=== PATIENT | female | born 1955 | race Caucasian/White ===

== ENCOUNTER 2020-08-27 09:02 | Inpatient (IN) | payer MEDICARE, OTHER ==
[~2020-08-27] VITALS: Ht 162.6 cm; Wt 68.9 kg
[~2020-08-27 09:02] MED LIST: CIPR500 PO; DICY20 PO; METR500 PO; Norco 7.5-3251 EACH PO
[2020-08-27 09:52] LABS: BASOPHILS ABSOLUTE AUTO 0.11 K/mm3 (0.00-0.23); BASOPHILS PERCENT AUTO 0 % (0-2); EOSINOPHILS ABSOLUTE AUTO 0.03 K/mm3 (0.00-0.68); EOSINOPHILS PERCENT AUTO 0 % (0-6); Hematocrit 50.6 % (33.0-51.0); IMMATURE GRAN ABSOLUTE AUTO 0.14 K/mm3 (0.00-0.10); IMMATURE GRAN PERCENT AUTO 1 % (0-1); LYMPHOCYTES ABSOLUTE AUTO 2.94 K/mm3 (0.84-5.20); LYMPHOCYTES PERCENT AUTO 12 % (21-46); MONOCYTES PERCENT AUTO 7 % (4-13); Mean Corpuscular HGB 30.3 pg (26.0-34.0); Mean Corpuscular HGB Conc 35.6 g/dL (31.5-36.5); Mean Corpuscular Volume 85 fL (80-100); Mean Platelet Volume 10.5 fL (9.1-12.4); NEUTROPHILS ABSOLUTE AUTO 19.87 K/mm3 (1.96-9.15); NEUTROPHILS PERCENT AUTO 81 % (41-73); Platelet Count 335 K/mm3 (150-400); RDW Coefficient Variation 12.9 % (11.7-14.2); RDW Standard Deviation 39.7 fL (35.1-46.3); Red Blood Cell Count 5.94 M/mm3 (3.80-5.20); White Blood Cell Count 24.69 K/mm3 (4.00-11.30)
[2020-08-27 10:04] LABS: Alanine Aminotransfer (ALT/SGP 31 U/L (12-78); Albumin, Blood 3.2 g/dL (3.4-5.0); Albumin/Globulin Ratio 0.9 (0.8-1.8); Alk Phos 100 U/L (50-136); Anion Gap 8 mmol/L (6-16); Aspartate Aminotrans (AST/SGOT 21 U/L (12-37); Bilirubin, Total 0.5 mg/dL (0.1-1.0); Blood Urea Nitrogen 23 mg/dL (8-24); Bun/Creatinine Ratio 24.5 (12.0-20.0); CO2, Blood 27 mmol/L (21-32); Calcium, Blood 8.3 mg/dL (8.5-10.1); Chloride, Blood 99 mmol/L (98-108); Creatinine, Blood 0.94 mg/dL (0.40-1.00); Globulin, Blood 3.4 g/dL (2.2-4.0); Glomerular Filtration Rate >60 (60-); Glucose, Blood 142 mg/dL (70-99); Potassium, Blood 3.2 mmol/L (3.5-5.5); Sodium, Blood 134 mmol/L (136-145); Total Protein, Blood 6.6 g/dL (6.4-8.2)
[2020-08-27] MEDS ORDERED: GABA300 PO (16:14)
[2020-08-27] MEDS ORDERED: [UNRECOGNIZED DRUG - OTHER] TOP (17:00)
[2020-08-27] MEDS ORDERED: CALCIUM 600 +1 EA11 PO (17:01)
[2020-08-27] MEDS ORDERED: Fish Oil 340 mg-1,00 PO (17:02)
[2020-08-27] MEDS ORDERED: MULTIVITAMIN MINERAL PO (17:04)
--- NOTE | 2020-08-27 18:28 | NUR ---
SHIFT SUMMARY. NEW ADMIT TODAY. A&OX4, INDEPENDENT TO BSC SECONDARY TO CONTINUOUS IV FLUIDS. PT REPORTS THAT SHE HAS BEEN HAVING N/V/D FOR THE PAST FOUR MONTHS AND HAS BEEN BEING WORKED UP BY HER PCP. PT REPORTS CRAMPING TYPE PAIN TO ABD THAT IS INTERMITTENT, DENIES NAUSEA, NO VOMITTING SINCE ADMISSION, TOLERATING CLEAR LIQUIDS. CONTINUES WITH LIQUID STOOLS. STOOL SPECIMEN COLLECTED BY PILEDRIVER CARPENTER IS QUESTIONABLE TO BEING CONTAMINATED WITH URINE. CONSULT CALLED IN TO DR. FERRARA VIA HIS CELL. NO OTHER CHANGES OR CONCERNS.
[2020-08-27 21:17] LABS: Adenovirus F 40/41 Not Detected (NOT DETECT); Astrovirus Not Detected (NOT DETECT); Campylobacter Sp Not Detected (NOT DETECT); Cryptosporidium Not Detected (NOT DETECT); Cyclospora Cayetanensis Not Detected (NOT DETECT); E. Coli O157 Not Detected (NOT DETECT); Entamoeba Histolytica Not Detected (NOT DETECT); Enteroaggregative E. coli-EAEC Not Detected (NOT DETECT); Enteropathogenic E. coli-EPEC Not Detected (NOT DETECT); Enterotoxigenic E. coli-ETEC Not Detected (NOT DETECT); Giardia Lamblia Not Detected (NOT DETECT); Norovirus GI/GII Not Detected (NOT DETECT); Plesiomonas Shigelloides Not Detected (NOT DETECT); Rotavirus A Not Detected (NOT DETECT); Salmonella Sp Not Detected (NOT DETECT); Sapovirus Not Detected (NOT DETECT); Shiga Toxin-prod E. coli-STEC Not Detected (NOT DETECT); Shigella/Enteroin E. coli-EIEC Not Detected (NOT DETECT); Vibrio Cholerae Not Detected (NOT DETECT); Vibrio Sp Not Detected (NOT DETECT); Yersinia Enterocolitica Not Detected (NOT DETECT)
[2020-08-27 22:30] LABS: SARS-Cov-2 (COVID-19) PCR, MMC NEGATIVE (NEGATIVE)
[2020-08-28 04:56] LABS: BASOPHILS ABSOLUTE AUTO 0.05 K/mm3 (0.00-0.23); BASOPHILS PERCENT AUTO 0 % (0-2); EOSINOPHILS ABSOLUTE AUTO 0.06 K/mm3 (0.00-0.68); EOSINOPHILS PERCENT AUTO 0 % (0-6); Hemoglobin 14.1 g/dL (11.5-16.0); IMMATURE GRAN ABSOLUTE AUTO 0.08 K/mm3 (0.00-0.10); IMMATURE GRAN PERCENT AUTO 1 % (0-1); LYMPHOCYTES ABSOLUTE AUTO 3.02 K/mm3 (0.84-5.20); LYMPHOCYTES PERCENT AUTO 18 % (21-46); MONOCYTES ABSOLUTE AUTO 1.38 K/mm3 (0.16-1.47); MONOCYTES PERCENT AUTO 8 % (4-13); Mean Corpuscular HGB 30.5 pg (26.0-34.0); Mean Corpuscular HGB Conc 34.4 g/dL (31.5-36.5); Mean Corpuscular Volume 89 fL (80-100); Mean Platelet Volume 10.5 fL (9.1-12.4); NEUTROPHILS ABSOLUTE AUTO 12.52 K/mm3 (1.96-9.15); NEUTROPHILS PERCENT AUTO 73 % (41-73); Platelet Count 228 K/mm3 (150-400); RDW Standard Deviation 41.9 fL (35.1-46.3); Red Blood Cell Count 4.63 M/mm3 (3.80-5.20); White Blood Cell Count 17.11 K/mm3 (4.00-11.30)
[2020-08-28 05:12] LABS: Anion Gap 5 mmol/L (6-16); Blood Urea Nitrogen 13 mg/dL (8-24); Bun/Creatinine Ratio 18.3 (12.0-20.0); CO2, Blood 27 mmol/L (21-32); Calcium, Blood 7.2 mg/dL (8.5-10.1); Chloride, Blood 107 mmol/L (98-108); Creatinine, Blood 0.71 mg/dL (0.40-1.00); Glomerular Filtration Rate >60 (60-); Glucose, Blood 101 mg/dL (70-99); Magnesium, Blood 1.9 mg/dL (1.6-2.4); Sodium, Blood 139 mmol/L (136-145)
--- NOTE | 2020-08-28 07:19 | NUR ---
SHIFT SUMMARY: PATIENT IS A&OX4, UP TO BCS INDEPENDANTLY. GOLYTELY WAS STARTED LAST EVENING, 2000 ML, TOLERATED FAIR. MULTIPLE LIQUID STOOLS WITH SOME UNDIGESTED FOOD. PATIENT WAS UNABLE TO TOLERATE IV POTASSIUM ORDER YESTERDAY AM AT THE ORDERED RATE DUE TO BURNING. MAINTNANCE IVF ALSO HAVE POTASSIUM. PATIENT AGAIN THIS AM REPORTED RIGHT ARM PAIN STARTING AT IV SIGHT IN R ARM. IV SIGHT IS SL WHILE REPORT IS GIVEN TO ONCOMING RN. TOLERATING CL DIET WELL.
--- NOTE | 2020-08-28 12:44 | NUR ---
INTO SDS ADMISSION TO UNIT STARTED
--- NOTE | 2020-08-28 14:19 | NUR ---
08/28/20 1418 Nehemiah Hernandez PATIENT DETERMINED TO BE ASA APPROPRIATE FOR PROPOFOL SEDATION PRIOR TO START OF PROCEDURE BY DR. WARD. 3-LEAD EKG REVIEWED WITH PHYSICIAN PRIOR TO START OF PROCEDURE. Patient to ENDO 1. MONITOR INTACT WITH CONTINUOUS PULSE OXIMETRY AND INTERMITTENT BP.
--- NOTE | 2020-08-28 17:56 | NUR ---
SHIFT SUMMARY. A&OX4, INDEPENDENT IN ROOM, PLEASANT AND COOPERATIVE WITH CARE. UPPER AND LOWER SCOPE COMPLETED TODAY BY DR. ALEM DR. GAVE RESULTS TO PT AND AFTERWARDS. PT STARTED ON IV SOLU-MEDROL THIS AFTERNOON. CONTINUES WITH IV POTTASIUM REPLACEMENT. IV ABX D/C'D. NO OTHER CHANGES OR CONCERNS.
--- NOTE | 2020-08-29 06:31 | NUR ---
SHIFT SUMMARY: PATIENT REPORTED INCREASED ACID REFLUX, TUMS WAS GIVEN WITH LITTLE EFECT, PATIENT REPORTS TAKING 4 TABS OF TUMS AT HOME. SAFETY DEPOSIT SUPERVISOR WAS NOTIFIED AND ORDERS FOR PEPCID IV X1 AND A PRN GI COCKTAIL. PATIENT REPORTS GOOD EFFECT. PATIENT ALSO REPORTS GOOD EFFECT FROM BENADRYL GIVEN FOR SLEEP. UP TO THE BATHROOM INDEPENDANTLY.
--- NOTE | 2020-08-29 16:39 | NUR ---
SHIFT SUMMARY- PT IS A/O, PLESANT AND COOPERATIVE. SHE RECIEVED A REGULAR DIET THIS AFTERNOON AND TOLERATED WELL. SHE REPORTS NO NAUSEA THIS SHIFT BUT DOES HAVE HEARTBURN. PROVIDED TUMS. SHE HAD ONE SMALL BM THIS SHIFT. HER WAS AT BEDSIDE THIS AFTERNOON. SHE AMBULATED IN THE [place] THIS SHIFT AND WAS STABLE ON HER FEET. HER BED IS IN THE LOW POSITION AND CALL LIGHT IS WITIN REACH.
--- NOTE | 2020-08-30 04:37 | NUR ---
SHIFT SUMMARY ADMITTED FOR COLITIS. FULL CODE. WE WERE HOPEFUL FOR DC TODAY. THIS SHIFT THE PT IS STATING THAT HER "HEARTBURN HAS WORSENED". SHE EXPERIENCED N/V ONE TIME THIS SHIFT, SHE REFUSED ZOFRAN. I DID GIVE HER PRN TUMS X2 TIMES, AND THE GI COCKTAIL X1 TIME. SHE HAD AN UPPER & LOWER SCOPE TWO DAYS AGO REVEALING ULCERATIVE COLITIS & A HIATAL HERNIA. DR MCGARRY IS CONSULT.
[2020-08-30] MEDS ORDERED: Acetaminophen325 M1 PO (13:01)
[2020-08-30] MEDS ORDERED: TUMS500 MG PO (13:02)
[2020-08-30] MEDS ORDERED: BENADRYL25 MG PO (13:02)
[2020-08-30] MEDS ORDERED: ASACOL HD800 MG PO (13:04)
[2020-08-30] MEDS ORDERED: MESALAMINE4 GM/60 M2 PR (13:04)
[2020-08-30] MEDS ORDERED: PANT20 PO (13:08)
[2020-08-30] MEDS ORDERED: Prednisone10 MG PO (13:20)
--- NOTE | 2020-08-30 17:52 | NUR ---
SHIFT SUMMARY- PT IS A/O, PLESANT AND COOPERATIVE. HER APPETITIE IS POOR. SHE IS RECIEVING PRN MEICATION FOR HEARTBURN. HER DISCHARGE IS COMPLETE BUT SHE IS STILL RECIEVING HER IV LASIX. SHE TOOK A SHOWER THIS SHIFT. SHE HAD SEVERAL BM THIS SHIFT. HER BED IS IN THE LOW POSITION AND CALL LIGHT IS WITHIN REACH.
--- NOTE | 2020-08-30 19:17 | NUR ---
DISCHARGE NOTE I DC'D THIS PT'S IV. IDENTITY MANAGEMENT DEVELOPER ASSISTED PT TO DRESS AND HELPED HER GATHER HER POSSESSIONS. IDENTITY MANAGEMENT DEVELOPER ASSISTED PT TO PARKING LOT WHERE HER WAS WAITING. DAY SHIFT NURSE EXPLAINED DC INSTRUCTIONS AND PROVIDED DC PAPERWORK
== END 2020-08-30 19:14 | disposition home or self-care (01) | DRG 385 ==
LOC: ER 09:02 → ERHOLD 09:03 → MEDS 09:03
PROVIDERS: Emergency Medicine; Physician Assistant; Student in an Organized Health Care Education/Training Program; ADMIT Internal Medicine
PROC: 0DBP8ZX Excision of Rectum, Via Natural or Artificial Opening Endoscopic, Diagnostic (ICD-10-PCS; 2020-08-28)
PROC: 0DBM8ZX Excision of Descending Colon, Via Natural or Artificial Opening Endoscopic, Diagnostic (ICD-10-PCS; 2020-08-28)
PROC: 0DBH8ZX Excision of Cecum, Via Natural or Artificial Opening Endoscopic, Diagnostic (ICD-10-PCS; 2020-08-28)
PROC: 0DB68ZX Excision of Stomach, Via Natural or Artificial Opening Endoscopic, Diagnostic (ICD-10-PCS; 2020-08-28)
PROC: 0DBN8ZZ Excision of Sigmoid Colon, Via Natural or Artificial Opening Endoscopic (ICD-10-PCS; 2020-08-28)
PROC: 0DBK8ZX Excision of Ascending Colon, Via Natural or Artificial Opening Endoscopic, Diagnostic (ICD-10-PCS; principal; 2020-08-28 13:00)
PROC: 0DBL8ZX Excision of Transverse Colon, Via Natural or Artificial Opening Endoscopic, Diagnostic (ICD-10-PCS; 2020-08-28 13:00)
PROC: 0DBN8ZX Excision of Sigmoid Colon, Via Natural or Artificial Opening Endoscopic, Diagnostic (ICD-10-PCS; 2020-08-28 13:00)
DX: K51.911 Ulcerative colitis, unspecified with rectal bleeding (principal); K29.41 Chronic atrophic gastritis with bleeding; E87.1 Hypo-osmolality and hyponatremia; Z20.822 Contact with and (suspected) exposure to COVID-19; Z66 Do not resuscitate; K21.9 Gastro-esophageal reflux disease without esophagitis; L40.9 Psoriasis, unspecified; E87.6 Hypokalemia; E86.0 Dehydration; K44.9 Diaphragmatic hernia without obstruction or gangrene; G62.9 Polyneuropathy, unspecified; Z87.891 Personal history of nicotine dependence; Z90.49 Acquired absence of other specified parts of digestive tract; Z90.710 Acquired absence of both cervix and uterus; Z90.722 Acquired absence of ovaries, bilateral; Z88.0 Allergy status to penicillin; Z79.2 Long term (current) use of antibiotics; Z79.899 Other long term (current) drug therapy
CPT/HCPCS: 0097U; 36415; 74177; 80048; 80053; 82947; 83690; 83735; 85025; 85651; 86140; 88305; 88342; 93005; 93010; 96365; 96366; 96367; 96375; 96376; 99284-25; A9270; C9113; G0378; J0744; J1956; J2405; J2704; J2930; J3480; J7030; J7050; J7120; Q9967; U0004

== ENCOUNTER 2020-09-03 08:31 | Inpatient (IN) | payer MEDICARE, OTHER ==
[~2020-09-03] VITALS: Ht 162.6 cm; Wt 67.7 kg
[~2020-09-03 08:31] MED LIST changes: +ASACOL HD800 MG PO; +Acetaminophen325 M1 PO; +BENADRYL25 MG PO; +CALCIUM 600 +1 EA11 PO; +Fish Oil 340 mg-1,00 PO; +GABA300 PO; +MESALAMINE4 GM/60 M2 PR; +MULTIVITAMIN MINERAL PO; +PANT20 PO; +Prednisone10 MG PO; +TUMS500 MG PO; +[UNRECOGNIZED DRUG - OTHER] TOP
[2020-09-03 09:06] LABS: BASOPHILS ABSOLUTE AUTO 0.07 K/mm3 (0.00-0.23); BASOPHILS PERCENT AUTO 0 % (0-2); EOSINOPHILS ABSOLUTE AUTO 0.13 K/mm3 (0.00-0.68); EOSINOPHILS PERCENT AUTO 1 % (0-6); Hematocrit 42.2 % (33.0-51.0); Hemoglobin 14.5 g/dL (11.5-16.0); IMMATURE GRAN ABSOLUTE AUTO 0.22 K/mm3 (0.00-0.10); IMMATURE GRAN PERCENT AUTO 1 % (0-1); LYMPHOCYTES ABSOLUTE AUTO 2.25 K/mm3 (0.84-5.20); LYMPHOCYTES PERCENT AUTO 10 % (21-46); MONOCYTES ABSOLUTE AUTO 1.26 K/mm3 (0.16-1.47); MONOCYTES PERCENT AUTO 6 % (4-13); Mean Corpuscular HGB 30.9 pg (26.0-34.0); Mean Corpuscular HGB Conc 34.4 g/dL (31.5-36.5); Mean Corpuscular Volume 90 fL (80-100); Mean Platelet Volume 9.7 fL (9.1-12.4); NEUTROPHILS ABSOLUTE AUTO 17.62 K/mm3 (1.96-9.15); NEUTROPHILS PERCENT AUTO 82 % (41-73); Platelet Count 337 K/mm3 (150-400); RDW Coefficient Variation 13.5 % (11.7-14.2); RDW Standard Deviation 43.6 fL (35.1-46.3); White Blood Cell Count 21.55 K/mm3 (4.00-11.30)
[2020-09-03 09:27] LABS: Alanine Aminotransfer (ALT/SGP 42 U/L (12-78); Albumin, Blood 2.9 g/dL (3.4-5.0); Alk Phos 75 U/L (50-136); Anion Gap 7 mmol/L (6-16); Aspartate Aminotrans (AST/SGOT 15 U/L (12-37); Bilirubin, Total 0.3 mg/dL (0.1-1.0); Blood Urea Nitrogen 17 mg/dL (8-24); Bun/Creatinine Ratio 23.3 (12.0-20.0); CO2, Blood 25 mmol/L (21-32); Calcium, Blood 8.1 mg/dL (8.5-10.1); Chloride, Blood 103 mmol/L (98-108); Creatinine, Blood 0.73 mg/dL (0.40-1.00); Globulin, Blood 2.9 g/dL (2.2-4.0); Glomerular Filtration Rate >60 (60-); Glucose, Blood 136 mg/dL (70-99); Potassium, Blood 3.3 mmol/L (3.5-5.5); Sodium, Blood 135 mmol/L (136-145); Total Protein, Blood 5.8 g/dL (6.4-8.2)
[2020-09-03 12:04] LABS: Source, Urine Clean Catch
[2020-09-03 12:11] LABS: Appearance, Urine Clear (Clear); Bilirubin, Urine Neg (Neg); Blood, Urine Neg (Neg); Color, Urine Yellow (P-Yellow); Glucose Qualitative, Urine Neg (Neg); Ketones, Urine Neg (Neg); Leukocyte Esterase, Urine Neg (Neg); Nitrite, Urine Neg (Neg); Protein, Urine Neg (Neg); Urobilinogen, Urine NORM (Normal)
--- NOTE | 2020-09-03 18:23 | NUR ---
PT SETTLED TO ROOM. SMALL AMT OF REDDISH STOOL IN COMMODE. ADMIT DONE. H/R REG, NO MURMER NOTED NO TELE. LUNGS CLEAR, RESP EASY UNLABORED. ON R.A. BT X4 LAST BM TODAY. DOES HAVE LITE AMT OF REDDISH CONTENTS IN STOOL. HAT HAS BEEN PLACED IN COMMODE TO MONITOR CHANGES. VIODS IND TO BATHROOM. BED IN LOW POSITION, CALL LITE IN REACH, CALLS APPROP
--- NOTE | 2020-09-04 04:46 | NUR ---
SHIFT SUMMARY: STEVEN IS A&OX4. VSS, NO ACUTE EVENTS OVERNIGHT. SHE DID BECOME QUITE AGITATED STATING THAT SHE FELT HER CONDITION WAS WORSENING INSTEAD OF IMPROVING. SHE REPORTED ADEQUATE RELIEF OF THE ABDOMINAL CRAMPING WITH ONE TABLET OF THE NORCO. SHE STATES THAT HER IS VERY UPSET AND WILL LIKELY BE TAKING HER UP TO A HOSPITAL IN [place] THIS MORNING. IV TO LEFT WRIST PATENT, LR INFUSING. SHE IS TOLERATING PO INTAKE WELL. SHE DID HAVE A SOFT BROWN BOWEL MOVEMENT THIS AM. SHE IS LYING IN BED WITH THE CALL LIGHT IN REACH. SHE IS INDEPENDENT TO THE BATHROOM. WILL REPORT TO DAY SHIFT RN.
[2020-09-04 05:13] LABS: BASOPHILS ABSOLUTE AUTO 0.05 K/mm3 (0.00-0.23); BASOPHILS PERCENT AUTO 0 % (0-2); EOSINOPHILS PERCENT AUTO 0 % (0-6); Hematocrit 39.7 % (33.0-51.0); Hemoglobin 13.7 g/dL (11.5-16.0); IMMATURE GRAN ABSOLUTE AUTO 0.16 K/mm3 (0.00-0.10); IMMATURE GRAN PERCENT AUTO 1 % (0-1); LYMPHOCYTES ABSOLUTE AUTO 1.44 K/mm3 (0.84-5.20); LYMPHOCYTES PERCENT AUTO 6 % (21-46); MONOCYTES ABSOLUTE AUTO 0.42 K/mm3 (0.16-1.47); MONOCYTES PERCENT AUTO 2 % (4-13); Mean Corpuscular HGB 30.8 pg (26.0-34.0); Mean Corpuscular HGB Conc 34.5 g/dL (31.5-36.5); Mean Corpuscular Volume 89 fL (80-100); Mean Platelet Volume 9.9 fL (9.1-12.4); NEUTROPHILS ABSOLUTE AUTO 20.99 K/mm3 (1.96-9.15); NEUTROPHILS PERCENT AUTO 91 % (41-73); Platelet Count 291 K/mm3 (150-400); RDW Coefficient Variation 13.6 % (11.7-14.2); RDW Standard Deviation 43.7 fL (35.1-46.3); Red Blood Cell Count 4.45 M/mm3 (3.80-5.20); White Blood Cell Count 23.06 K/mm3 (4.00-11.30)
[2020-09-04 05:40] LABS: Alanine Aminotransfer (ALT/SGP 27 U/L (12-78); Albumin, Blood 2.2 g/dL (3.4-5.0); Albumin/Globulin Ratio 0.9 (0.8-1.8); Alk Phos 59 U/L (50-136); Anion Gap 5 mmol/L (6-16); Aspartate Aminotrans (AST/SGOT 11 U/L (12-37); Bilirubin, Total 0.2 mg/dL (0.1-1.0); Blood Urea Nitrogen 10 mg/dL (8-24); Bun/Creatinine Ratio 17.7 (12.0-20.0); CO2, Blood 27 mmol/L (21-32); Calcium, Blood 7.7 mg/dL (8.5-10.1); Chloride, Blood 106 mmol/L (98-108); Creatinine, Blood 0.57 mg/dL (0.40-1.00); Globulin, Blood 2.5 g/dL (2.2-4.0); Glomerular Filtration Rate >60 (60-); Glucose, Blood 164 mg/dL (70-99); Potassium, Blood 3.4 mmol/L (3.5-5.5); Sodium, Blood 138 mmol/L (136-145); Total Protein, Blood 4.7 g/dL (6.4-8.2)
--- NOTE | 2020-09-04 18:29 | NUR ---
SHIFT SUMMARY CYNTHIA COMPLAINED OF ABDOMINAL CRAMPING FOR WHICH BENTYL HELPED. VISITED. TOLERATED PO DIET WELL WITHOUT NAUSEA. 4 LOOSE MUCOID BROWN BM IN TOILET THIS SHIFT. MIVF RUNNING. CALL LIGHT IN REACH, WCTM
--- NOTE | 2020-09-05 06:20 | NUR ---
SHIFT SUMMARY: PATIENT IS A&OX4, INDEPENDANT IN THE ROOM, STEADY GAIT OBSERVED. NO BM'S REPORTED THIS SHIFT, VOIDING CLEAR YELLOW URINE. PATIENT REPORTED ACID REFLUX AND REQUESTED TUMS. PIANO AND ORGAN REFINISHER JAMES MATA FISHERIES SPECIALIST IS NOTIFIED AND ORDER FOR PRN TUMS WAS OBTAINED AND MEDS WAS GIVEN WITH GOOD EFFECT. PATIENT ALSO REQUESTED SLEEP AIDE, PRN BENADRYL WAS GIVEN WITH GOOD EFFECT.
--- NOTE | 2020-09-05 09:03 | NUR ---
SPOKE WITH DR WARD OFFICE TO SCHEDULE AN OUTPATIENT APPT PER DR GALINDO. PER OFFICE THEY ARE SCHEDULING OUT INTO DEC. THEY REPORT THE PT WAS SEEN IN OFFICE ON 09/01, THEY WILL GET A MESSAGE TO DR WARD AND CALL THE PT BACK WITH AN APPT.
[2020-09-05 09:57] LABS: BASOPHILS ABSOLUTE AUTO 0.07 K/mm3 (0.00-0.23); BASOPHILS PERCENT AUTO 0 % (0-2); EOSINOPHILS ABSOLUTE AUTO 0.01 K/mm3 (0.00-0.68); EOSINOPHILS PERCENT AUTO 0 % (0-6); Hematocrit 37.3 % (33.0-51.0); Hemoglobin 12.7 g/dL (11.5-16.0); IMMATURE GRAN ABSOLUTE AUTO 0.26 K/mm3 (0.00-0.10); IMMATURE GRAN PERCENT AUTO 1 % (0-1); LYMPHOCYTES ABSOLUTE AUTO 1.22 K/mm3 (0.84-5.20); LYMPHOCYTES PERCENT AUTO 5 % (21-46); MONOCYTES PERCENT AUTO 4 % (4-13); Mean Corpuscular HGB 30.7 pg (26.0-34.0); Mean Corpuscular Volume 90 fL (80-100); Mean Platelet Volume 10.2 fL (9.1-12.4); NEUTROPHILS ABSOLUTE AUTO 22.54 K/mm3 (1.96-9.15); NEUTROPHILS PERCENT AUTO 90 % (41-73); Platelet Count 285 K/mm3 (150-400); RDW Standard Deviation 45.9 fL (35.1-46.3); Red Blood Cell Count 4.14 M/mm3 (3.80-5.20)
[2020-09-05 10:10] LABS: Alanine Aminotransfer (ALT/SGP 23 U/L (12-78); Albumin, Blood 2.3 g/dL (3.4-5.0); Albumin/Globulin Ratio 0.8 (0.8-1.8); Alk Phos 57 U/L (50-136); Anion Gap 4 mmol/L (6-16); Aspartate Aminotrans (AST/SGOT 10 U/L (12-37); Bilirubin, Total 0.2 mg/dL (0.1-1.0); Blood Urea Nitrogen 8 mg/dL (8-24); Bun/Creatinine Ratio 13.8 (12.0-20.0); CO2, Blood 28 mmol/L (21-32); Calcium, Blood 7.8 mg/dL (8.5-10.1); Chloride, Blood 109 mmol/L (98-108); Creatinine, Blood 0.58 mg/dL (0.40-1.00); Globulin, Blood 2.9 g/dL (2.2-4.0); Glomerular Filtration Rate >60 (60-); Glucose, Blood 153 mg/dL (70-99); Potassium, Blood 3.4 mmol/L (3.5-5.5); Sodium, Blood 141 mmol/L (136-145); Total Protein, Blood 5.2 g/dL (6.4-8.2)
--- NOTE | 2020-09-05 11:35 | NUR ---
CALLED BACK AND SPOKE WITH DR WARD OFFICE DUE TO PT REPORTING SHE DID NOT MAKE IT TO HER APPT 09/01. OFFICE LOOKED INTO IT AND PT DID MISS THE APPT ON 09/01 AND WAS RESCHEDULED FOR NEW PT APPT ON 12/14. THEY REPORT THEY LET DR WARD NO FOR AN URGENT APPT AND WILL CALL PT WITH APPT DATE AND TIME.
--- NOTE | 2020-09-05 12:45 | NUR ---
PATIENT IS ALERT AND ORIENTED AND COOPERATIVE WITH CARE. PATIENT C/O CRAMPING WITH BM'S. NO BLOOD IN STOOL. PATIENT IS INDEPENDENT IN HER RROM. LR AT 75/HR. PATIENT HAS A GOOD APPETITE, SHE IS DOCUMENTING ALL OF HER MEALS. DR. WARD'S OFFICE WILL CALL AND SCHEDULE APPOINTMENT WITH PATIENT AN OUT PATIENT. WILL CONTINUE TO MONITOR
--- NOTE | 2020-09-05 17:33 | NUR ---
PATIENT IS ALERT AND ORIENTED. SHE HAS HAD MULTIPLE BM'S THIS SHIFT. HER WAS AT THE BEDSIDE DURING VISITING HOURS. SHE HAS GOOD PO INTAKE. NO C/O CRAMPING. WILL CONTINUE TO MONITOR
--- NOTE | 2020-09-06 04:53 | NUR ---
SHIFT SUMMARY:A&OX4, UP TO THE BATHROOM INDEPENDANTLY. LIQIUD STOOL X2, 600 ML TOTAL. CLEAR WITH SMALL AMT OF ALICIA PEICES. PATIENT REPORT RECTUM TENDERNESS FROM MULTIPLE STOOL. JAVIER BOTTLE FOR GENTLE CLEASING, SOFT CLOTHS TO PAT DRY AND TYLENOL ARE GIVEN. BENTYL IS GIVEN X1 WITH GOOD EFFECT FOR CTAMPING. BENADRYL WAS GIVEN FOR INSOMNIA WITH GOOD EFFECT. PATIENT REFUSED ROWASA ENEMA, "I AM AFFRAID I WONT BE ABLE TO KEEP IT IN LONG BECAUSE OF THE LIQUID STOOLS".
[2020-09-06 05:32] LABS: BASOPHILS ABSOLUTE AUTO 0.03 K/mm3 (0.00-0.23); BASOPHILS PERCENT AUTO 0 % (0-2); EOSINOPHILS PERCENT AUTO 0 % (0-6); Hematocrit 35.3 % (33.0-51.0); IMMATURE GRAN ABSOLUTE AUTO 0.14 K/mm3 (0.00-0.10); IMMATURE GRAN PERCENT AUTO 1 % (0-1); LYMPHOCYTES ABSOLUTE AUTO 1.33 K/mm3 (0.84-5.20); LYMPHOCYTES PERCENT AUTO 7 % (21-46); MONOCYTES ABSOLUTE AUTO 0.42 K/mm3 (0.16-1.47); MONOCYTES PERCENT AUTO 2 % (4-13); Mean Corpuscular HGB 30.5 pg (26.0-34.0); Mean Corpuscular Volume 90 fL (80-100); Mean Platelet Volume 9.9 fL (9.1-12.4); NEUTROPHILS ABSOLUTE AUTO 17.98 K/mm3 (1.96-9.15); NEUTROPHILS PERCENT AUTO 90 % (41-73); Platelet Count 259 K/mm3 (150-400); RDW Coefficient Variation 13.9 % (11.7-14.2); RDW Standard Deviation 45.1 fL (35.1-46.3); Red Blood Cell Count 3.93 M/mm3 (3.80-5.20)
[2020-09-06 06:05] LABS: Anion Gap 5 mmol/L (6-16); Blood Urea Nitrogen 10 mg/dL (8-24); Bun/Creatinine Ratio 16.4 (12.0-20.0); CO2, Blood 26 mmol/L (21-32); Calcium, Blood 7.6 mg/dL (8.5-10.1); Chloride, Blood 110 mmol/L (98-108); Creatinine, Blood 0.61 mg/dL (0.40-1.00); Glomerular Filtration Rate >60 (60-); Glucose, Blood 131 mg/dL (70-99); Potassium, Blood 3.6 mmol/L (3.5-5.5); Sodium, Blood 141 mmol/L (136-145)
[2020-09-06 15:24] LABS: Adenovirus F 40/41 Not Detected (NOT DETECT); Astrovirus Not Detected (NOT DETECT); Campylobacter Sp Not Detected (NOT DETECT); Cryptosporidium Not Detected (NOT DETECT); Cyclospora Cayetanensis Not Detected (NOT DETECT); E. Coli O157 Not Detected (NOT DETECT); Entamoeba Histolytica Not Detected (NOT DETECT); Enteroaggregative E. coli-EAEC Not Detected (NOT DETECT); Enteropathogenic E. coli-EPEC Not Detected (NOT DETECT); Enterotoxigenic E. coli-ETEC Not Detected (NOT DETECT); Giardia Lamblia Not Detected (NOT DETECT); Norovirus GI/GII Not Detected (NOT DETECT); Plesiomonas Shigelloides Not Detected (NOT DETECT); Rotavirus A Not Detected (NOT DETECT); Salmonella Sp Not Detected (NOT DETECT); Shiga Toxin-prod E. coli-STEC Not Detected (NOT DETECT); Shigella/Enteroin E. coli-EIEC Not Detected (NOT DETECT); Vibrio Cholerae Not Detected (NOT DETECT); Vibrio Sp Not Detected (NOT DETECT); Yersinia Enterocolitica Not Detected (NOT DETECT)
[2020-09-06 15:25] LABS: Sapovirus Not Detected (NOT DETECT)
--- NOTE | 2020-09-06 17:04 | NUR ---
PT AOX4 AND COOPERATIVE OF CARE. PT INDEPENDENT TO RESTROOM AND HAS CONTINUED TO HAVE WATERY JELLY LIKE STOOL. SAMPLE TESTED AND ALL NEGATIVE PER LAB TEST. PT STATED SHE HAS HAD A LOT LESS TODAY AND FEELS LIKE SHE HAS MORE CONTROL WITHOUT HAVING ACCIDENTAL BM ON HER WAY TO RESTROOM. PT DENIES PAIN AT THIS TIME AND IS USING CREAM ON HER BOTTOM IT IS GETTING RED. PT CALLS APPROPRIATELY AND SHOWS NO DISRESS AT THIS TIME. WILL CONTINUE TO MONITOR.
--- NOTE | 2020-09-06 18:30 | NUR ---
PT GAVE THIS STUDENT NURSE PERMISSION TO PROVIDE CARE ON 09/06/20.
--- NOTE | 2020-09-07 04:37 | NUR ---
SHIFT SUMMARY PT A&OX4; PLEASANT&COOPERATIVE TO CARE. NO ACUTE CHANGES T/O THE NIGHT. PT HAS NO C/o; REPORTS MULTIPLE BM T/O THE NIGHT. PER PROVIDER PT PROBABLE D/C 09/07. BED IN LOWEST POSITION & CALL LIGHT WITHIN REACH. WILL CONTINUE TO MONITOR.
[2020-09-07 05:16] LABS: Anion Gap 4 mmol/L (6-16); Blood Urea Nitrogen 9 mg/dL (8-24); Bun/Creatinine Ratio 14.2 (12.0-20.0); CO2, Blood 29 mmol/L (21-32); Calcium, Blood 7.5 mg/dL (8.5-10.1); Chloride, Blood 109 mmol/L (98-108); Creatinine, Blood 0.63 mg/dL (0.40-1.00); Glomerular Filtration Rate >60 (60-); Glucose, Blood 85 mg/dL (70-99); Potassium, Blood 3.3 mmol/L (3.5-5.5); Sodium, Blood 142 mmol/L (136-145)
[2020-09-07 05:50] LABS: BASOPHILS ABSOLUTE AUTO 0.03 K/mm3 (0.00-0.23); BASOPHILS PERCENT AUTO 0 % (0-2); EOSINOPHILS ABSOLUTE AUTO 0.22 K/mm3 (0.00-0.68); EOSINOPHILS PERCENT AUTO 2 % (0-6); Hematocrit 36.7 % (33.0-51.0); Hemoglobin 12.7 g/dL (11.5-16.0); IMMATURE GRAN ABSOLUTE AUTO 0.09 K/mm3 (0.00-0.10); IMMATURE GRAN PERCENT AUTO 1 % (0-1); LYMPHOCYTES PERCENT AUTO 12 % (21-46); MONOCYTES ABSOLUTE AUTO 1.06 K/mm3 (0.16-1.47); MONOCYTES PERCENT AUTO 7 % (4-13); Mean Corpuscular HGB 31.2 pg (26.0-34.0); Mean Corpuscular HGB Conc 34.6 g/dL (31.5-36.5); Mean Corpuscular Volume 90 fL (80-100); Mean Platelet Volume 10.1 fL (9.1-12.4); NEUTROPHILS ABSOLUTE AUTO 11.66 K/mm3 (1.96-9.15); NEUTROPHILS PERCENT AUTO 79 % (41-73); Platelet Count 236 K/mm3 (150-400); RDW Coefficient Variation 14.1 % (11.7-14.2); RDW Standard Deviation 46.2 fL (35.1-46.3); Red Blood Cell Count 4.07 M/mm3 (3.80-5.20); White Blood Cell Count 14.76 K/mm3 (4.00-11.30)
--- NOTE | 2020-09-07 18:37 | NUR ---
PT GAVE THIS STUDENT NURSE PERMISSION TO PROVIDE CARE ON 09/07/20.
--- NOTE | 2020-09-07 19:30 | NUR ---
LATE ENTRY 09/07/20 3848 I AGREE WITH CHARTING & ASSESSMENT OF STUDENT RN DEWEY MURDOCK
--- NOTE | 2020-09-08 04:53 | NUR ---
SHIFT SUMMARY PT INDEPENDENT IN THE ROOM; UP X1 TO BATHROOM SEMI-FORMED BM. A&OX4. PT MEDICATED WITH TYLENOL FOR ESPINOZA. PT C/O OF SLIGHT COUGH THAT STARTED EARLIER THIS AFTERNOON. PT WAS ABLE TO REST T/O THE NIGHT. WILL CONTINUE TO MONITOR UNTIL DAY RN GIVEN REPORT.
[2020-09-08 05:56] LABS: Anion Gap 5 mmol/L (6-16); Blood Urea Nitrogen 7 mg/dL (8-24); Bun/Creatinine Ratio 9.6 (12.0-20.0); CO2, Blood 28 mmol/L (21-32); Calcium, Blood 7.5 mg/dL (8.5-10.1); Chloride, Blood 105 mmol/L (98-108); Creatinine, Blood 0.73 mg/dL (0.40-1.00); Glomerular Filtration Rate >60 (60-); Glucose, Blood 93 mg/dL (70-99); Potassium, Blood 3.3 mmol/L (3.5-5.5); Sodium, Blood 138 mmol/L (136-145)
[2020-09-08] MEDS ORDERED: CIPR500 PO (13:58)
[2020-09-08] MEDS ORDERED: ORTIKOS9 M1 PO (13:58)
[2020-09-08] MEDS ORDERED: METR500 PO (13:59)
--- NOTE | 2020-09-08 15:33 | NUR ---
PT DISCHARGED THE PT VERBALIZED UNDERSTANDING OF THE DC INSTRUCTIONS, THE PTS PRESCRIPTIONS WERE FAXED TO [facility] REQUESTED, FOLLOW UP APPOINTMENTS WERE MADE PRIOR TO DC, THE PT WAS MER, PT TRANSFERED VIA WHEELCHAIR ACCOMPANIED BY THE OFFICE SPECIALIST
== END 2020-09-08 15:19 | disposition home or self-care (01) | DRG 386 ==
LOC: ER 08:31 → MEDS 08:32
PROVIDERS: Family Medicine; Physician Assistant; Student in an Organized Health Care Education/Training Program; ADMIT Internal Medicine
DX: K51.811 Other ulcerative colitis with rectal bleeding (principal); E87.1 Hypo-osmolality and hyponatremia; K21.9 Gastro-esophageal reflux disease without esophagitis; M85.80 Other specified disorders of bone density and structure, unspecified site; G62.9 Polyneuropathy, unspecified; E87.6 Hypokalemia; Z20.822 Contact with and (suspected) exposure to COVID-19; Z79.899 Other long term (current) drug therapy; Z88.0 Allergy status to penicillin; Z79.52 Long term (current) use of systemic steroids; Z90.710 Acquired absence of both cervix and uterus; Z90.49 Acquired absence of other specified parts of digestive tract; Z98.890 Other specified postprocedural states; Z79.51 Long term (current) use of inhaled steroids
CPT/HCPCS: 0097U; 36415; 74177; 80048; 80053; 81003; 83735; 83993; 84145; 85025; 86140; 86850; 86900; 86901; 93005; 93010; 96374; 96375; 96376; 99285-25; A9270; C9113; G0378; J0744; J2930; J3480; J7120; Q9967

== ENCOUNTER 2021-04-28 22:04 | Emergency (ER) | payer MEDICARE, OTHER ==
[~2021-04-28] VITALS: Ht 162.6 cm; Wt 68.0 kg
[~2021-04-28 22:04] MED LIST changes: +ORTIKOS9 M1 PO
== END 2021-04-29 01:15 | disposition home or self-care (01) ==
LOC: ER 22:04
DX: S61.012A Laceration without foreign body of left thumb without damage to nail, initial encounter (principal); K21.9 Gastro-esophageal reflux disease without esophagitis; Z88.0 Allergy status to penicillin; Z79.899 Other long term (current) drug therapy; X58.XXXA Exposure to other specified factors, initial encounter
CPT/HCPCS: 12001; 90471; 90714; 99282-25

== ENCOUNTER → 2021-05-22 | Outpatient (CLI) | payer MEDICARE, OTHER ==
[~2021-05-22] MED LIST changes: +LIALDA PO; +SLEEP AID PO
[2021-05-22 18:12] LABS: Adenovirus F 40/41 Not Detected (NOT DETECT); Astrovirus Not Detected (NOT DETECT); Campylobacter Sp Not Detected (NOT DETECT); Cryptosporidium Not Detected (NOT DETECT); Cyclospora Cayetanensis Not Detected (NOT DETECT); E. Coli O157 Not Detected (NOT DETECT); Entamoeba Histolytica Not Detected (NOT DETECT); Enteroaggregative E. coli-EAEC Not Detected (NOT DETECT); Enteropathogenic E. coli-EPEC Not Detected (NOT DETECT); Enterotoxigenic E. coli-ETEC Not Detected (NOT DETECT); Giardia Lamblia Not Detected (NOT DETECT); Norovirus GI/GII Not Detected (NOT DETECT); Plesiomonas Shigelloides Not Detected (NOT DETECT); Rotavirus A Not Detected (NOT DETECT); Salmonella Sp Not Detected (NOT DETECT); Sapovirus Not Detected (NOT DETECT); Shiga Toxin-prod E. coli-STEC Not Detected (NOT DETECT); Shigella/Enteroin E. coli-EIEC Not Detected (NOT DETECT); Vibrio Cholerae Not Detected (NOT DETECT); Vibrio Sp Not Detected (NOT DETECT); Yersinia Enterocolitica Not Detected (NOT DETECT)
== END | disposition home or self-care (01) ==
LOC: LAB SHORT 10:20
PROVIDERS: Student in an Organized Health Care Education/Training Program
DX: R19.7 Diarrhea, unspecified (principal)
CPT/HCPCS: 0097U; 87324

== ENCOUNTER → 2021-09-13 | Outpatient (CLI) | payer MEDICARE, OTHER ==
[~2021-09-13] MED LIST changes: +ERGO400
== END | disposition home or self-care (01) ==
LOC: PLD 11:04 → LAB 11:04 → LAB SHORT 11:04
DX: D22.62 Melanocytic nevi of left upper limb, including shoulder (principal)
CPT/HCPCS: 88305

== ENCOUNTER → 2021-09-18 | Outpatient (CLI) | payer MEDICARE, OTHER ==
[2021-09-18 19:13] LABS: Campylobacter Sp Not Detected (NOT DETECT)
[2021-09-18 19:14] LABS: Adenovirus F 40/41 Not Detected (NOT DETECT); Astrovirus Not Detected (NOT DETECT); Cryptosporidium Not Detected (NOT DETECT); Cyclospora Cayetanensis Not Detected (NOT DETECT); E. Coli O157 Not Detected (NOT DETECT); Entamoeba Histolytica Not Detected (NOT DETECT); Enteroaggregative E. coli-EAEC Not Detected (NOT DETECT); Enteropathogenic E. coli-EPEC Not Detected (NOT DETECT); Enterotoxigenic E. coli-ETEC Not Detected (NOT DETECT); Giardia Lamblia Not Detected (NOT DETECT); Norovirus GI/GII Not Detected (NOT DETECT); Plesiomonas Shigelloides Not Detected (NOT DETECT); Rotavirus A Not Detected (NOT DETECT); Salmonella Sp Not Detected (NOT DETECT); Sapovirus Not Detected (NOT DETECT); Shiga Toxin-prod E. coli-STEC Not Detected (NOT DETECT); Shigella/Enteroin E. coli-EIEC Not Detected (NOT DETECT); Vibrio Cholerae Not Detected (NOT DETECT); Vibrio Sp Not Detected (NOT DETECT); Yersinia Enterocolitica Not Detected (NOT DETECT)
== END | disposition home or self-care (01) ==
LOC: LAB 07:36 → LAB SHORT 07:36
PROVIDERS: Student in an Organized Health Care Education/Training Program
DX: K52.3 Indeterminate colitis (principal); R19.7 Diarrhea, unspecified
CPT/HCPCS: 87324; 87507

== ENCOUNTER 2022-10-11 09:18 | Day surgery (SDC) | payer MEDICARE, OTHER ==
[~2022-10-11] VITALS: Ht 162.6 cm; Wt 69.1 kg
[2022-10-11] MEDS ORDERED: MESA250ER (09:43)
[2022-10-11 10:49] VITALS: BP 101/56
== END 2022-10-11 10:51 | disposition home or self-care (01) ==
LOC: ORSCSDS 09:18
PROVIDERS: Student in an Organized Health Care Education/Training Program
PROC: 0DBF8ZX Excision of Right Large Intestine, Via Natural or Artificial Opening Endoscopic, Diagnostic (ICD-10-PCS; principal; 2022-10-11 11:15)
PROC: 0DBG8ZX Excision of Left Large Intestine, Via Natural or Artificial Opening Endoscopic, Diagnostic (ICD-10-PCS; principal; 2022-10-11 11:15)
PROC: 0DBH8ZX Excision of Cecum, Via Natural or Artificial Opening Endoscopic, Diagnostic (ICD-10-PCS; principal; 2022-10-11 11:15)
DX: K52.3 Indeterminate colitis (principal); D12.0 Benign neoplasm of cecum; K52.832 Lymphocytic colitis; Q43.8 Other specified congenital malformations of intestine; Z79.899 Other long term (current) drug therapy
CPT/HCPCS: 88305; J2704; J7120

== ENCOUNTER 2023-01-31 07:22 | Day surgery (SDC) | payer MEDICARE, OTHER ==
[~2023-01-31] VITALS: Ht 160 cm; Wt 69.2 kg
[~2023-01-31 07:22] MED LIST changes: +MESA250ER
[2023-01-31] MEDS ORDERED: MESA250ER PO (07:38)
[2023-01-31] MEDS ORDERED: CALCIUM 600 +1 EA11 PO (07:39)
[2023-01-31] MEDS ORDERED: ROSU10TA PO (07:39)
[2023-01-31] MEDS ORDERED: DICLEGIS DR 101 EAC1 PO (07:39)
--- NOTE | 2023-01-31 07:44 | NUR ---
01/31/23 0744 Emy Swift 1 DROP OF TETRACAINE ADMINISTERED TO THE L EYE AT 0741, PLEDGET PLACED AT 0743 BY [email or web address], PT JEFF WELL
[2023-01-31 09:04] VITALS: BP 96/59
--- NOTE | 2023-01-31 11:00 | NUR ---
01/31/23 1100 Avinash Zeng IV REMOVED INTACT. SITE WNL.
== END 2023-01-31 09:15 | disposition home or self-care (01) ==
LOC: ORSCSDS 07:22
PROVIDERS: Ophthalmology
PROC: 08RK3JZ Replacement of Left Lens with Synthetic Substitute, Percutaneous Approach (ICD-10-PCS; principal; 2023-01-31 08:30)
DX: H25.12 Age-related nuclear cataract, left eye (principal); E78.5 Hyperlipidemia, unspecified; K21.9 Gastro-esophageal reflux disease without esophagitis; H35.30 Unspecified macular degeneration; Z79.899 Other long term (current) drug therapy
CPT/HCPCS: J2001; J2250; J3010; J3301; J7040; V2632

== ENCOUNTER 2023-02-07 06:46 | Day surgery (SDC) | payer MEDICARE, OTHER ==
[~2023-02-07] VITALS: Ht 160 cm; Wt 68.9 kg
[~2023-02-07 06:46] MED LIST changes: +DICLEGIS DR 101 EAC1 PO; +MESA250ER PO; +ROSU10TA PO
--- NOTE | 2023-02-07 07:18 | NUR ---
02/07/23 0718 More Healy TETRACAINE PLACED IN RIGHT EYE AT 0706. PLEDGET PLACED IN RIGHT EYE AT 0707. PATIENT TOLERATED WELL.
[2023-02-07 08:24] VITALS: BP 101/65
--- NOTE | 2023-02-07 08:50 | NUR ---
02/07/23 0850 Avinash Zeng IV REMOVED INTACT. SSITE WNL.
== END 2023-02-07 08:47 | disposition home or self-care (01) ==
LOC: ORSCSDS 06:46
PROVIDERS: Ophthalmology
PROC: 08RJ3JZ Replacement of Right Lens with Synthetic Substitute, Percutaneous Approach (ICD-10-PCS; principal; 2023-02-07 08:00)
DX: H25.11 Age-related nuclear cataract, right eye (principal); K21.9 Gastro-esophageal reflux disease without esophagitis; Z96.1 Presence of intraocular lens; H35.30 Unspecified macular degeneration; Z79.899 Other long term (current) drug therapy
CPT/HCPCS: J2001; J2250; J3010; J3301; J7040; V2632

== ENCOUNTER → 2023-02-27 | Outpatient (CLI) | payer MEDICARE, OTHER | LOC: PLD 12:08 → LAB SHORT 12:08 | DX: D48.5 Neoplasm of uncertain behavior of skin (principal) | CPT/HCPCS: 88305 ==

== ENCOUNTER → 2024-01-18 | Outpatient (CLI) | payer MEDICARE, OTHER | LOC: LAB 09:00 → LAB SHORT 09:00 | DX: R30.0 Dysuria (principal) | CPT/HCPCS: 87077; 87086; 87186 ==